=== PATIENT | female | born 1950 | race Caucasian/White ===

== ENCOUNTER 2024-12-14 08:07 | Emergency (ER) | payer MEDICARE ==
[~2024-12-14] VITALS: Ht 157.5 cm; Wt 66.4 kg
[2024-12-14 08:07] VITALS: TEMP 97.7
[2024-12-14] MEDS ORDERED: AMOX-580 PO (08:58)
[2024-12-14] MEDS ORDERED: CEPH-585 PO (09:34)
[2024-12-14] MEDS: LIDOCAINE 1%/EPI 1:100,000 inj. 10 ML multi-dose vial IJ ONE (09:37)
[2024-12-14] MEDS: TETanus/Pertussis (Acell)/Diphther VAC/PF (Tdap-Adult) 0.5ml syringe IMVAC ONE (09:38)
[2024-12-14 09:55] VITALS: BP 146/86; PULSE 76; RESP 15; O2SAT 98
== END 2024-12-14 09:56 | disposition home or self-care (01) ==
LOC: ER 08:07
DX: S61.412A Laceration without foreign body of left hand, initial encounter (principal); W26.8XXA Contact with other sharp object(s), not elsewhere classified, initial encounter; Y93.89 Activity, other specified; Y92.89 Other specified places as the place of occurrence of the external cause; Y99.8 Other external cause status
CPT/HCPCS: 12001; 90715; 99283; G0008; J3490; J7030; Z7610; 90471